=== PATIENT | male | born 1945 | race Caucasian/White ===

== ENCOUNTER 2017-02-13 12:06 | Inpatient (IN) | payer MEDICARE ==
[2017-02-13 13:31] LABS: ABSOLUTE NEUTROPHIL COUNT 8.3 K/mm3 (1.8-7.7); BASO # 0.1 K/mm3 (0.0-0.2); BASO % 0.7 % (0.2-1.0); EOS # 0.2 (0.0-0.5); EOS % 1.8 % (0.9-2.9); HEMATOCRIT 39.6 % (32.0-52.0); HEMOGLOBIN 13.2 gm/l (14.0-18.0); IMM NEUT # 0.1 K/mm3 (0-0.2); IMM NEUT% 0.4 % (0-1); LYMPH # 1.4 (1.0-4.8); LYMPH % 12.6 % (15-45); MEAN CELL VOLUME 97.1 fl (80.0-94.0); MEAN CORPUSCULAR HEMOGLOBIN 32.4 pg (27.0-31.0); MEAN CORPUSCULAR HGB CONC 33.3 g/dl (33.0-37.0); MEAN PLATELET VOLUME 9.9 fl (7.4-10.4); MONO # 1.4 (0.0-0.8); NEUT % 72.5 % (43-75); PLATELET COUNT 233 K/mm3 (130-400); RED CELL DISTRIBUTION WIDTH 11.9 % (11.5-14.5)
[2017-02-13 13:42] LABS: ALB/GLOB RATIO 1.4 (>1.0); ALBUMIN 4.4 gm/dL (3.5-5.7); CALCIUM 9.9 mg/dL (8.6-10.3)
--- NOTE | 2017-02-13 13:49 | US ---
RIGHT LOWER EXTREMITY VENOUS ULTRASOUND HISTORY: Right ankle and calf pain. Sonography of the right lower extremity was performed, with a focus on the venous structures. FINDINGS: COMMON FEMORAL VEIN: Patent and compressible. SUPERFICIAL FEMORAL VEIN: Patent and compressible. POPLITEAL VEIN: Patent and compressible. PROXIMAL CALF VEINS: Patent and compressible. RESPIRATORY AUGMENTATION OF FLOW: Present. ABNORMAL FLUID COLLECTIONS: None identified. IMPRESSION: No sonographic evidence of right lower extremity deep venous thrombosis. Results were electronically transmitted to the electronic medical record at 1417 at 1345 hours.
--- NOTE | 2017-02-13 14:12 | RAD ---
RIGHT ANKLE 3 VIEWS HISTORY: Right lateral ankle pain and swelling COMPARISONS: None. TECHNIQUE: Frontal, lateral, and oblique views of the right ankle. ALIGNMENT: Grossly unremarkable. Ankle mortise intact. FRACTURE: No displaced acute fracture. SOFT TISSUES: Moderate diffuse soft tissue swelling. Ankle effusion is present. RADIOOPAQUE FOREIGN BODY: None. IMPRESSION: No gross malalignment or displaced acute fracture noted. Soft tissue swelling with joint effusion; the current study does not exclude inflammatory arthropathy.
[2017-02-13 15:49] LABS: TOTAL PROTEIN,BODY FLUID 5.4 g/dl
[2017-02-13 17:48] LABS: SYNOVIAL FLUID SOURCE ANKLE
[2017-02-13 17:49] LABS: SYNOVIAL FLUID APPEARANCE TURBID; SYNOVIAL FLUID COLOR RED
[2017-02-13 17:50] LABS: SYNOVIAL FLUID NEUTROPHILS 92 % (0-20)
[2017-02-13] MEDS: KETOROLAC TROMETHAMINE 15 MG/ML VIAL IV ONE ×2 (19:13→19:50)
[2017-02-13] MEDS ORDERED: IV START KIT ONE (19:16)
[2017-02-13] MEDS ORDERED: SODIUM CHLORIDE 0.9% FLUSH 10 ML ONE (19:16)
[2017-02-13] MEDS ORDERED: BLISTEX LIPSTICK 1 EACH TP PRN (19:39)
[2017-02-13] MEDS ORDERED: ACETAMINOPHEN 325 MG TABLET PO PRN (19:39)
[2017-02-13] MEDS ORDERED: SODIUM CHLORIDE 0.9% 100 ML IV PRN (19:39)
[2017-02-13] MEDS ORDERED: MENTHOL/CETYLPYRD 1 EACH LOZENGE PO PRN (19:39)
[2017-02-13] MEDS ORDERED: BISACODYL 10 MG SUP PR PRN (19:39)
[2017-02-13] MEDS ORDERED: MAGNESIUM HYDROXIDE 30 ML UDCUP PO PRN (19:39)
[2017-02-13] MEDS ORDERED: DIPHENHYDRAMINE HCL 25 MG CAPSULE PO PRN (19:39)
[2017-02-13] MEDS ORDERED: BISACODYL 5 MG TABLET.EC PO PRN (19:39)
[2017-02-13] MEDS ORDERED: ALBUTEROL NEB 2.5 MG/3 ML VIAL.NEB NEB PRN (19:42)
[2017-02-13] MEDS ORDERED: INSULIN ASPART (DOSE) 100 UNITS/1 ML SUB-Q PRN (19:44)
[2017-02-13] MEDS ORDERED: ALBUTEROL SULFATE 200 PUFFS/INH INHALER IH PRN (19:46)
[2017-02-13 20:25] VITALS: BMI 30.4
--- NOTE | 2017-02-13 20:33 | HP ---
BLANKA QUINTERO : 1945 [id number] DATE OF ADMISSION: February 13, 2017 PRIMARY CARE PROVIDER: Macario Juarez M.D. CHIEF COMPLAINT: Right ankle pain. HISTORY OF PRESENT ILLNESS: Patient is a 71-year-old gentleman with a history of diabetes and asthma who presents with complaint of right ankle pain for approximately one week. He states that about five days ago, he developed some right ankle pain at 2:00 in the morning. Enough such that he was unable to ambulate on his ankle. He used some crutches to get around. It improved the next day but then worsened the day following and has continued to worsen since. He has had some redness and swelling around the ankle as well, but it has been very generalized on and off. He states that the pain is so severe that it is very hard for him to have anything touching his ankle at all. Ice has been minimally helpful and [id number] medications have not helped at all. 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 However, he does not recall any injuries. Patient came to the emergency room because his pain was severe and was unable to get in to his primary care provider on Wednesday because of a power loss that they had and the clinic was closed. Patient did have two taps of the ankle in the emergency department and this returned a white cell count of 97,366 suggesting septic ankle. He has been seen by orthopedics, and they suggested surgery tomorrow. He is admitted for management until then. PAST MEDICAL HISTORY: Positive for: 1. Asthma which is moderately well controlled. 2. Positive for hypertension. 3. Positive for diabetes type 2 which he states is in the beginning stages. PAST SURGICAL HISTORY: Positive for: 1. Right shoulder rotator cuff last year which was done by Dr. Lee. 2. He has had a ventral hernia repair in the past. 3. He has had sinus surgery in the past. 4. He had bilateral knee arthroscopies both at different times in past years. 5. He had a left parotid removal about 25 years ago which was noncancerous. 6. He also had a thyroid biopsy this year that was negative. ALLERGIES: NO KNOWN DRUG ALLERGIES. He does state that he is allergic to SYMBICORT as well as PENICILLIN. Says it causes him thrush. FAMILY HISTORY: Positive for a dad with severe gout. His mother apparently had ovarian cancer and a sister also had ovarian cancer which spread to the liver. SOCIAL HISTORY: Patient denies any smoking. He quit when he was in college. He denies any drug use. He does drink about one beer per day. MEDICATIONS: Patient is currently takin. Metformin 500 mg orally twice daily. 2. Albuterol MDI two puffs every four hours as needed. He uses this about four to six times per day currently. 3. Losartan 50 mg orally daily. 4. He also takes a daily multivitamin. REVIEW OF SYSTEMS: A full 14 point review of systems is performed and is positive for right ankle pain and swelling with erythema around the ankle. He has had some calf, thigh and buttock pain as well on the right. All other review of systems is negative. PHYSICAL EXAM: VITAL SIGNS: Patient's blood pressure is 148/77, his pulse is 87, his respiratory rate is 14. He is satting 98% on room air. His temperature is 97.5. GENERAL: Patient is lying in bed in no acute distress. EYES: Extraocular muscles are intact. Pupils equal, round and reactive to light. HEENT: Normocephalic, atraumatic. Mucous membranes moist. Oropharynx is clear. HEART: Regular rate and rhythm, no murmur, no rubs, positive S1 and S2. SKIN: Warm, dry and intact. He does have erythema on the right lower extremity around the ankle which is patchy and not with clear borders. LUNGS: Clear to auscultation bilaterally. No wheezes, rales or rhonchi. ABDOMEN: Soft, nontender, nondistended, positive bowel sounds. No hepatosplenomegaly. EXTREMITIES: No cyanosis or clubbing is seen. He has a little bit of nonpitting edema on the right lower extremity around the ankle in the area of the erythema. He is tender in the right ankle as well. NEUROLOGIC: Patient is awake, alert and oriented. He is moving all of his extremities. Cranial nerves appear to be intact. PSYCHOLOGIC: Patient's affect is full and appropriate. STUDIES AND LABORATORIES: An ankle x-ray performed in the emergency department shows no misalignment or displacement, no fracture noted. There is soft joint swelling as well as joint effusion seen on the x-ray. He had a Duplex scan of the lower extremities artery performed in the emergency department today which showed no evidence of deep venous thrombosis. Labs show a white count of 11.4, hemoglobin 13.2, and hematocrit 39.6, and platelet count is 223. He does not have a left shift. Sodium is 133, potassium is 4.4, chloride is 98, CO2 is 27, BUN is 23, creatinine is 1.3, glucose is 014, calcium is 9.9, bilirubin is 1.3, AST is 24, ALT is 36, alkaline phosphatase 57. CRP is 10. His fluid analysis is currently pending crystals. He had 100 glucose, 5.4 protein and 933 LDH in the fluid, WBC was 97,366 with RBC of 46 and neutrophils of 92. ASSESSMENT AND PLAN: 1. Septic ankle. Patient's tap did have significantly elevated WBC count in the right ankle, as such he likely has a septic ankle. Dr. Whitlock, the orthopedic machine feeder floorperson apparently today, has seen the patient today and did perform that tap. He wishes to keep the patient off of antibiotics so that he can take the patient to the operating room tomorrow morning as the patient is not appearing septic and is afebrile. The risk is low for holding off on antibiotics management until such times as he goes to the operating room for the cleanout as well as a clear culture to get a good bacteria specimen. As such, tonight we will manage the patient with pain control and IV fluids. He will be kept nothing by mouth after midnight for anticipated surgery tomorrow morning. 2. Diabetes type 2. Patient has diabetes type 2 which is apparently well controlled on metformin only. I will be holding his metformin due to the fact that he will be having surgery. I am going to get his capillary blood sugars with low sliding scale insulin coverage and a diabetic diet. 3. Hypertension. Patient has a history of hypertension which appears to be well controlled. We will continue his home Losartan and monitor with adjustment as necessary. 4. Asthma. Patient has a history of asthma which he states is reasonably well controlled. He is taking his albuterol several times a day, however, as he is not able to tolerate any of the longer acting medications according to the patient. I will be giving him nebulizers if necessary and metered dose inhaler for mild symptoms. We can adjust if necessary and a steroid if required. 5. Deep venous thrombosis prophylaxis. Patient will be given mechanical means of deep venous thrombosis prophylaxis for now until after surgery in which case Lovenox can be started. 6. Code status: Patient is FULL CODE. Cc: Macario Juarez M.D.
[2017-02-13] MEDS ORDERED: PUMP TUBING ONE (20:51)
[2017-02-13] MEDS: DOCUSATE SODIUM 100 MG CAPSULE PO SCH (21:01)
[2017-02-13] MEDS: FAMOTIDINE 20 MG TABLET PO SCH (21:01)
[2017-02-13] MEDS: SODIUM CHLORIDE 0.9% 1,000 ML IV SCH (21:01)
--- NOTE | 2017-02-13 22:19 | PDOC36 ---
Provider Note Subject: Dx: R ankle septic arthritis I evaluated Mr. Coe in the ED earlier this evening. Please refer to my dictation from that encounter. I aspirated the patients right ankle and sent the specimen for analysis. Synovial WBC resulted with 95,000+ WBCs and over 90% PMNs. Cultures are still pending. The preliminary data is highly predictive of septic arthritis. As such, we will plan to proceed with right ankle I&D. I have discussed this with Mr. Coe. We will proceed tomorrow morning. T&S tonight. Will hold antibiotics tonight in an effort to obtain surgical biopsies/culture without antibiotic interference. This will allow for improved likelihood of identifying a species and sensitivities. The patient is not systemically ill or septic at this time. Should he become increasingly ill overnight we should start empiric antibiotics. Will obtain surgical consent in A.M. prior to surgery.
[2017-02-13 23:07] LABS: CRYSTAL SOURCE Synovial (())
[2017-02-13] MEDS: HYDROCODONE/ACETAMINOPHEN 5/325MG TABLET PO PRN (23:34)
[2017-02-14] MEDS ORDERED: KETOROLAC TROMETHAMINE 15 MG/ML VIAL IV PRN (02:00)
[2017-02-14] MEDS: SODIUM CHLORIDE 0.9% 1,000 ML IV SCH ×2 (05:09→12:20)
--- NOTE | 2017-02-14 07:11 | PDOC43 ---
- Subjective Chief Complaint: R ankle pain pt feeling much better. toradol holed his pain and swelling a good deal. he was able to sleep well. plan to OR today Subjective: Reports Pain Tolerable, Reports Tolerating Diet Well, Reports Urinating Without Difficulty, Denies Bowel Movement, Denies Shortness of Breath , Denies Cough, Denies Chest Pain, Denies Abdominal Pain, Denies Nausea, Denies Vomiting, Denies Fever, Denies Chills - Objective Vital Signs Temperature 98.1 F 02/14/17 01:08 Pulse Rate 75 02/14/17 01:08 Respiratory Rate 18 02/14/17 01:25 Blood Pressure 114/61 02/14/17 01:08 O2 Saturation by Pulse Oximetry 94 02/14/17 01:08 Oxygen Delivery Method Room Air Oxygen Flow Rate 0 Intake and Output 02/12/17 02/13/17 02/14/17 23:59 23:59 23:59 Intake Total 1406 Output Total 625 Balance 781 General: Alert, Oriented x3, Cooperative, No Acute Distress HEENT: Atraumatic, Mucous membr. moist/pink Lungs: Clear to Auscultation Bilaterally, Normal Air Movement, No Diminished at Bases Cardiovascular: Regular Rate and Rhythm, Normal S1, Normal S2, No Murmur, No Gallops, No Rubs Abdomen: Soft, Normal Bowel Sounds, Non-Distended, No Tenderness Extremities: Edema (improved in R ankle. non pitting), Tenderness (mild in R ankle), No Cyanosis Skin: Warm, Dry, Intact, Erythema (trace in R ankle now) Neurological: Normal Speech Psych/Mental Status: Normal Affect, Normal Mood 02/13/17 02/13/17 23:34 19:59 POC Capillary Glucose 111 H 118 H Current Medications: Current meds reviewed in EMR. - Problems: Assessment/Plan (1) Septic arthritis of right ankle Qualifiers: Septic arthritis organism: due to unspecified organism Qualifier Code: (M00.9) Pyogenic arthritis, unspecified Status: AcuteAssessment/Plan: improved swelling and pain with toradol. >95K white cells in fluid drawn in ER, with urate crystals as well. plan to OR today with Mary mehta to start after OR culture done (2) Diabetes mellitus Qualifiers: Diabetes mellitus type: type 2 Diabetes mellitus complication status: without complication Diabetes mellitus jail insulin use: without jail use Qualifier Code: (E11.9) Type 2 diabetes mellitus without complications Status: ChronicAssessment/Plan: sugars stable, on DM diet. holding metformin for OR (3) Asthma Qualifiers: Asthma severity: moderate persistent Asthma complication type: uncomplicated Qualifier Code: (J45.40) Moderate persistent asthma, uncomplicated Status: ChronicAssessment/Plan: nebs on as needed. Pt cannot use long acting inhalers due to recurrent thrush. is thus using albuterol daily, but controlled VTE Prophylaxis: mech means start lovenox after OR? Disposition: to OR today, then pending outcome of cultures
[2017-02-14 07:22] LABS: ABSOLUTE NEUTROPHIL COUNT 3.8 K/mm3 (1.8-7.7); BASO # 0.1 K/mm3 (0.0-0.2); BASO % 0.7 % (0.2-1.0); EOS # 0.3 (0.0-0.5); EOS % 4.5 % (0.9-2.9); HEMATOCRIT 34.5 % (32.0-52.0); HEMOGLOBIN 11.6 gm/l (14.0-18.0); IMM NEUT% 0.6 % (0-1); LYMPH # 1.6 (1.0-4.8); MEAN CELL VOLUME 96.4 fl (80.0-94.0); MEAN CORPUSCULAR HEMOGLOBIN 32.4 pg (27.0-31.0); MEAN CORPUSCULAR HGB CONC 33.6 g/dl (33.0-37.0); MEAN PLATELET VOLUME 10.7 fl (7.4-10.4); MONO # 1.1 (0.0-0.8); MONO % 16.1 % (4-12); NEUT % 55.1 % (43-75); PLATELET COUNT 191 K/mm3 (130-400); RED CELL DISTRIBUTION WIDTH 11.9 % (11.5-14.5)
[2017-02-14 07:30] LABS: CALCIUM 8.8 mg/dL (8.6-10.3)
[2017-02-14] MEDS ORDERED: FENTANYL 250 MCG/5 ML AMP ONE (07:55)
[2017-02-14] MEDS ORDERED: MIDAZOLAM HCL 1 MG/ML 2ML VIAL ONE (07:55)
[2017-02-14] MEDS ORDERED: LACTATED RINGERS 1,000 ML ONE ×2 (08:02→09:43)
[2017-02-14 08:13] LABS: PLATELET ESTIMATE RARE PLT CLUMPS (NORMAL)
[2017-02-14] MEDS ORDERED: ONDANSETRON 4 MG/2ML 2 ML VIAL ONE (08:37)
[2017-02-14] MEDS ORDERED: PROPOFOL 20 ML IV ONE (08:37)
[2017-02-14] MEDS ORDERED: LIDOCAINE 2% (PRES FREE) 5 ML VIAL ONE (08:37)
[2017-02-14] MEDS ORDERED: KETAMINE HCL UD SYRINGE 100 MG/2 ML IV ONE (08:39)
[2017-02-14] MEDS ORDERED: CEFAZOLIN SODIUM 1,000 MG VIAL ONE (08:44)
[2017-02-14] MEDS ORDERED: ATROPINE SULFATE 0.4 MG/1 ML VIAL IV PRN (08:47)
[2017-02-14] MEDS ORDERED: MEPERIDINE 25 MG/ML SYRINGE IV PRN (08:47)
[2017-02-14] MEDS ORDERED: FENTANYL 100 MCG/2 ML VIAL IV PRN (08:47)
[2017-02-14] MEDS ORDERED: NALOXONE HCL 0.4 MG/ML VIAL IV PRN (08:47)
[2017-02-14] MEDS ORDERED: HYDROMORPHONE HCL 1 MG/ML SYRINGE IV PRN (08:47)
[2017-02-14] MEDS ORDERED: ONDANSETRON 4 MG/2ML 2 ML VIAL IV PRN (08:47)
[2017-02-14] MEDS ORDERED: HYDROMORPHONE HCL 2 MG/ML SYRINGE ONE (08:56)
[2017-02-14] MEDS ORDERED: LACTATED RINGERS 1,000 ML IV SCH (09:00)
--- NOTE | 2017-02-14 09:29 | PCMBPN ---
Brief Post Op Note: Date of Procedure: 02/14/17 Start Time: ~845AM Preoperative Diagnosis: 1. R ankle septic arthritis Postoperative Diagnosis: 1. Same Procedure: I&D R ankle Surgeon: Jeff Whitlock MD Anesthesia: GETA Findings: Intra-articular purulence/debris Condition: Good Complications: None IV Fluids: Please see Anesthesia record for details. Urine Output: Not measured Estimated Blood Loss: 10 mLs Tourniquet Time: N/A Specimens: N/A Implants: N/A Drains: [N/A]
[2017-02-14] MEDS: DOCUSATE SODIUM 100 MG CAPSULE PO SCH ×2 (10:23→20:34)
[2017-02-14] MEDS: FAMOTIDINE 20 MG TABLET PO SCH ×2 (10:23→20:34)
[2017-02-14] MEDS: LOSARTAN POTASSIUM 50 MG TABLET PO SCH (10:24)
--- NOTE | 2017-02-14 10:52 | CONS ---
BLANKA QUINTERO [id number] DATE OF : 1945 DATE OF SERVICE: 02/13/2019 CHIEF COMPLAINT: Right ankle pain. HISTORY OF PRESENT ILLNESS: This is a 71-year-old gentleman with history of type 2 diabetes who presented to the emergency department today at about noon with complaint of right foot and ankle pain of approximately 5 days duration. He suggested this started on Wednesday with an aching pain that was progressive. He is now unable to bear weight. He has been using crutches the last few days. Prior to onset, he reports a slight increase in activity including a round of golf as well as trimming some hedges in his yard. He denies any trauma to the ankle. He denies any animal bites. He is unware of any bug bites. He is concerned, however, of potential tick bite given that he was out working in the yard trimming hedges. However, I do not see any areas of induration, or concern for bug bite on examination. Please see below for details. The patient denies any constitutional symptoms. He has not had any fevers. He is not feeling chilled. He has not had any night sweats. He simply reports progressive right ankle pain. He has difficulty with range of motion as well. He suggests that his ankle typically has good supple motion, and now this is blunted. CURRENT MEDICATIONS: 1. Metformin. Unknown dose. 2. Albuterol 2 puffs as needed for shortness of breath. 3. Losartan with an unknown dose as well. ALLERGIES: KNOWN ALLERGIES TO: 1. ERYTHROMYCIN. 2. SYMBICORT. PAST MEDICAL HISTORY: Significant for: 1. Type 2 diabetes. 2. Hypertension. 3. Pulmonary disease including asthma. PAST SURGICAL HISTORY: Includes: 1. Hernia repair. 2. Right shoulder rotator cuff tendon repair. This was done with Dr. Gonzalez. 3. Bilateral knee arthroscopies unknown as to when this was performed, remote history. SOCIAL HISTORY: Mr. Quintero is a [place]. He lives there in town. He is an active golfer. He drinks socially. He denies any drug use. He does not use tobacco products. REVIEW OF SYSTEMS: A 12-point review of systems was obtained and negative except as described in the history of present illness. PHYSICAL EXAMINATION: GENERAL: The patient appears his stated age. He is well-nourished. He is in no apparent distress. He has unlabored breathing. MUSCULOSKELETAL EXAMINATION: His right ankle is diffuse swollen to the level of essentially mid leg. He has a sausage appearance to the digits on that lower extremity. He has no tenderness to range of motion at the metatarsophalangeal joints of any digits. There is a bandage in place where he previously underwent an ultrasound aspirate of the fluid collection by emergency department physician, Dr. Grant. This was removed. There is an area of erythema about the dorsolateral aspect of the ankle tracking somewhat proximally of some 4 cm. It is difficult to assess the skin tone in the remainder of the foot as it has been prepped with iodine paint. However, there does appear to have an erythematous hue to the dorsum of the foot. There is a fusion and a fullness to both the medial aspect of the ankle wrapping posteriorly near the retrocalcaneal area. He has diffuse tenderness to palpation about the tibiotalar joint. Range of motion is blunting in both dorsiflexion and plantar flexion. He demonstrates that he is unable to weight bear without significant pain. He currently requires the use of a front wheeled walker. His sensation was intact to light touch in all nerve distribution including superficial, deep perineals, and the tibial node distributions, the medial and lateral plantar nerves are intact as well. He does have faintly palpable dorsalis pedis pulses. The may be faint as a result of this significant edema. His muscle strength is weak, but is likely limited due to pain. I would rate his pain as a 4/5. DIAGNOSTIC IMAGING: Three views of the right ankle were obtained. There is certainly no evidence of fracture, or dislocation. There is no evidence of bony erosions. No signs of osteomyelitis. There is an effusion present encompassing essentially tibiotalar joint and mid foot. There is diffuse swelling of the soft tissues from the tibiotalar joint distally. LABORATORY DATA: Patient's serum white count is elevated 11.4 with an elevated absolute neutrophil count of 8.3. Inflammatory markers are obtained. A CRP was measured at 10 mg/dL, and the sedimentation rate was elevated at 20 mm/hr. A synovial aspirate was obtained by Dr. Grant prior to my consultation. He was able to aspirate a few mL of straw colored, but turbid fluid high in viscosity. This was sent for cell count and differential, crystal examination and culture, as well as gram stain. Gram stain showed no organisms, but did demonstrate some white cells. Unfortunately, the cell count with differential was unable to be analyzed as the lab reported the sample had "clotted". A new sample was drawn. I preformed the aspirate myself. This was done without the use of ultrasound. This was obtained intraarticular aspirate of the tibiotalar joint, and was able to produce approximately 7 mL of blood tinged synovial fluid with a turbid appearance. We will send this for cell count and differential. IMPRESSION AND PLAN: This is a 71-year-old male with history of type 2 diabetes and 5 days of progressive ankle pain concerning for septic arthritis. Differential diagnosis, however, does also include gout and cellulitis. Given the appearance of the fluid aspirated from the ankle joint, I am concerned that this may represent a septic arthritis. However, without further laboratory data, it is difficult to make that determination at this time. As such, we sent off the repeat aspirate for cell count and differential. Should this cell count come back with counts greater than 35,000 white cells, and left shift with high percentage of neutrophils in the setting of an increased inflammatory markers as well as inability to weight bear, I would consider this joint infected and proceed to the operating room for further both biopsy, drainage, and irrigation and debridement of the right ankle joint. If the synovial count returns less concerning for infection meaning cell count less than 35,000 and neutrophil count less than 65%, I would suggest that this may be more of a gouty flare in the setting of an increased activity. The patient himself does not have a history of gout. However, he does report a family history thus rending it less likely. However, again as I suggested, if the white count is not concerning for infection, we would treat the patient with high doses of nonsteroidal antiinflammatory and antiinflammatory medications and to attempt to see if his symptoms improve. We may also consider at that point, a trial of empiric of IV antibiotics for the treatment of potential cellulitis. Given his inability to weight bear and high likelihood of infection whether it be cellulitis, or septic arthritis at this point, I would recommend the patient be admitted into an observation status while the remainder of the laboratory data is obtained, or results. In the interim, we will treat the patient's symptoms with high doses of antiinflammatories. I would like to hold off on any antibiotic administration at this point, until we do have culture results. I would like to involve the medicine doctors at this point to help us with this patient given his medical comorbidities as well as likely ongoing his infection whether cellulitis, or septic arthritis. MENDOZA/slim
--- NOTE | 2017-02-14 11:20 | OP ---
STEW QUINTERO [id number] DATE OF : 1945 DATE OF SERVICE: 02/14/2019 PREOPERATIVE DIAGNOSIS: Right ankle septic arthritis. POSTOPERATIVE DIAGNOSIS: Right ankle septic arthritis. PROCEDURE: Incision and drainage right ankle. SURGEON: Jeff Whitlock M.D. ANESTHESIA: General. Please see anesthesia record for complete details of that portion of the procedure. IV FLUIDS: Please see anesthesia record for complete details of that portion of [id number]. ESTIMATED BLOOD LOSS: 10 mL TOURNIQUET TIME: Not applicable. SPECIMENS: Two separate fluid cultures were sent to microbiology for speciation and sensitivities. INDICATIONS: Stew Quintero is a 71-year-old male history of type 2 diabetes who presented to the [facility] Emergency Department with complaints of 5 days progressive right ankle pain. He was unable to weight bear. He denied any fever, or chills. He has never had any history of similar symptoms. He reported that the ankle erythematous, swollen, and he had marked difficulty with ambulation, and weight bearing as well as range of motion of the ankle. Laboratory data was obtained. He had an elevated white blood cell count of 11.4. His inflammatory markers of ESR and CRP were also elevated to 22 and 10 respectively. An intraarticular, or synovial aspirate was obtained in the emergency department. This demonstrated a synovial white count of 97,500. There were urate crystals present. There were 92% neutrophils. Cultures are currently pending. Given the patient's presentation and extremely elevated synovial white count, elevated inflammatory markers, and leukocytosis this was felt to likely represent infection in the presence of a gout flair. As such, he was diagnosed with a septic arthritis in the setting of gout, and treatment options were discussed with the patient including IV antibiotics, and irrigation, and debridement of the ankle joint in the operating room. A formal PAR-Q session was held with the patient discussing risks and benefits of the surgery, as well as other treatment options which would essentially IV antibiotics only. He understood the necessity of surgical debridement, and irrigation and elected to proceed. Prior to surgery, the and was met in the preoperative holding area. Again, the risks and benefits were reviewed with the patient. A PAR-Q session was held with he and his family. The operative site was marked. A surgical consent was signed. The patient was transferred to the operating room. PROCEDURE DESCRIPTION: Upon arrival in the operating room, the patient was positioned on the operating room table in the supine position. General anesthesia was induced. Please see anesthesia record for complete details of their portion of the procedure. Once the patient was appropriately anesthetized, he was repositioned on the operating room table. A small bump was placed under the right lower extremity. The operative extremity was prepped and draped in the standard sterile fashion. Prior to the start of the case a formal timeout was held reconfirming the patient's identity, the operative site, and the surgery to be performed. There were no concerns, questions, or issues from operating room staff, anesthesia staff, and/or surgical team thus was deemed appropriate to proceed. Two small subcentimeter incisions made. The first over the anteromedial aspect of the ankle in a spot repressing that of the anteromedial portion of the ankle that one would use for arthroscopy. The skin was sharply dissected. A hemostat was then used to spread the soft tissues down to the level of the joint capsule. A 15 blade was then used to incise the joint capsule sharply. There was expression of a mild amount of purulent material at this point. This was both swabbed as well as cultured aspirated using an 18-gauge needle. The aspirate and swab were both sent for culture. This was repeated on the anterolateral portion of the ankle or a spot pertaining to that location. The skin was sharply dissected. A hemostat was used to spread the soft tissues down to the level of the ankle joint capsule. The capsule was incised sharply with a 15 blade thus allowing for 2 separate but contiguous portals one for inflow and outflow of irrigation fluid. The ankle was slightly distracted and three liters of sterile saline solution and copious amounts of irrigation were run through the ankle joint. The ankle was put through range of motion while this was occurring in an effort to appropriately lavage the entire ankle joint. Once the flow of fluid was clear and this was demonstrated clearance of the purulent material. There was approximately 3 L of fluid, then we turned our attention to closure. We used a 3-0 nylon suture for closure of the soft tissue and skin over the portal sites. At the end of the case, the wounds were dressed with a Xeroform, and multiple 4 x 4 gauze pad was wrapped in sterile Webril, and the patient's operative extremity was placed in a posterior foot splint for soft tissue rest. This marked the end of the case. At the end of the case, all counts were corrected and there were no issues, or concerns from the operating room staff, anesthesia staff, or surgical team, and thus the patient's anesthesia was reversed. He was transferred to the postanesthesia care unit for further observation, and monitoring. Once stable in the postanesthesia care unit, he will be transferred back to the [facility] and will undergo antibiotic therapy. POSTOPERATIVE PLAN: The patient will be made nonweightbearing for the initial 24 hours on the right lower extremity in an effort to provide soft tissue rest. The patient is currently in a posterior foot splint. This will be removed at 24 hours postoperative. The patient will be allowed to weight bear at that time with use of assistance. We will have the physical therapist work with him on gait training and weight bearing. We will continue IV antibiotic therapy empirically with use of Ancef currently. However, this will vary depending on culture results. We should hopefully have results from the aspirate in the emergency department sometime today. Until then, we will proceed with empiric antibiotic treatment using Ancef. Once speciation and sensitivities are available, we will make the appropriate changes to the antibiotic regimen. We will continue to maintain appropriate levels of analgesia using a combination of both non-narcotic and narcotic pain medications. I anticipate routine postoperative course, and the patient will likely be inpatient for 1 to 2 days. MENDOZA/slim
--- NOTE | 2017-02-14 12:25 | PDOC36 ---
Provider Note Subject: Post-operatrive Note -- Orthopedic Surgery Dx: R ankle septic arthritis POD#0 s/p I&D R ankle. - Patient doing well post-op - Pain is well controlled with current pain regimen. VSS; Afebrile. PE- Splint in place on RLE; No drainage. <3s cap refill Moves toes in ext/flex SILT DP/SP/Tib nerve distributions Labs - GS from surgical specimens negative for organisms. A/P: 71yo M s/p I&D R ankle for presumed septic arthritis. Doing well post-op. - Initiate PT starting tmrw AM; NWB RLE until tomorrow morning. WBAT thereafter - Maintain splint in place for soft tissue rest; OK to remove POD#1 and progress WB status. - Continue Abx; Empiric Ancef at this point. - Maintain adequate analegesia; NSAIDs ok. - VTE Ppx: SCDs while in bed; Encourage ambulation. - Dispo: Per Hospitalist; Anticiapte minimum 48hrs inpatient stay for continued course of Abx.
[2017-02-14] MEDS: CEFTRIAXONE 1 GRAM DUPLEX 1 G in Premix (D5W) 50 ml 1 EACH IV SCH (14:57)
[2017-02-14] MEDS ORDERED: VANCOMYCIN HCL 1.5 G in SODIUM CHLORIDE 0.9% 500 ML IV ONE (15:00)
[2017-02-14] MEDS ORDERED: CEFAZOLIN SODIUM 2 GRAM PREMIX 2 G in Premix (D5W) 100 ml 1 EACH IV SCH (17:00)
[2017-02-14] MEDS: HYDROCODONE/ACETAMINOPHEN 5/325MG TABLET PO PRN ×2 (19:15→23:15)
[2017-02-15 05:58] LABS: ABSOLUTE NEUTROPHIL COUNT 3.9 K/mm3 (1.8-7.7); BASO % 0.5 % (0.2-1.0); EOS # 0.3 (0.0-0.5); EOS % 5.1 % (0.9-2.9); HEMATOCRIT 33.1 % (32.0-52.0); HEMOGLOBIN 10.9 gm/l (14.0-18.0); IMM NEUT% 0.3 % (0-1); LYMPH # 1.5 (1.0-4.8); LYMPH % 22.5 % (15-45); MEAN CELL VOLUME 99.4 fl (80.0-94.0); MEAN CORPUSCULAR HEMOGLOBIN 32.7 pg (27.0-31.0); MEAN CORPUSCULAR HGB CONC 32.9 g/dl (33.0-37.0); MONO # 0.8 (0.0-0.8); MONO % 12.4 % (4-12); NEUT % 59.2 % (43-75); PLATELET COUNT 196 K/mm3 (130-400); RED CELL DISTRIBUTION WIDTH 11.9 % (11.5-14.5)
[2017-02-15 06:09] LABS: CALCIUM 8.7 mg/dL (8.6-10.3)
[2017-02-15] MEDS: DOCUSATE SODIUM 100 MG CAPSULE PO SCH ×3 (08:29→21:03)
[2017-02-15] MEDS: LOSARTAN POTASSIUM 50 MG TABLET PO SCH (08:29)
[2017-02-15] MEDS: FAMOTIDINE 20 MG TABLET PO SCH ×2 (08:29→21:01)
[2017-02-15] MEDS: HYDROCODONE/ACETAMINOPHEN 5/325MG TABLET PO PRN (12:20)
--- NOTE | 2017-02-15 13:06 | PDOC43 ---
- Subjective Chief Complaint: R ankle pain Still c/o significant right ankle pain. Had been taking a high dose of OTC magnesium with collagen for about a month prior to the ankle attack. - Objective Vital Signs Temperature 98.5 F 02/15/17 12:02 Pulse Rate 85 02/15/17 12:02 Respiratory Rate 18 02/15/17 12:02 Blood Pressure 159/91 02/15/17 12:02 O2 Saturation by Pulse Oximetry 94 02/15/17 12:02 Oxygen Delivery Method Room Air Oxygen Flow Rate 0 Intake and Output 02/14/17 02/15/17 02/16/17 06:59 06:59 06:59 Intake Total 1406 4685 300 Output Total 625 2980 Balance 781 1705 300 General: Alert, Oriented x3, Cooperative, No Acute Distress HEENT: Mucous membr. moist/pink Lungs: Clear to Auscultation Bilaterally Cardiovascular: Regular Rate and Rhythm Abdomen: Soft, Normal Bowel Sounds, No Tenderness, No Masses Extremities: Other (posterior splint on right leg) Skin: Normal Color Neurological: Normal Speech Psych/Mental Status: Normal Mood Laboratory 02/15/17 05:30 02/15/17 05:30 02/15/17 02/14/17 05:30 20:34 RBC 3.33 L MCV 99.4 H MCH 32.7 H MCHC 32.9 L Estimated GFR 50 L POC Capillary Glucose 110 H Current Medications: Current meds reviewed in EMR. - Problems: Assessment/Plan (1) Septic arthritis of right ankle Qualifiers: Septic arthritis organism: due to unspecified organism Qualifier Code: (M00.9) Pyogenic arthritis, unspecified Status: AcuteAssessment/Plan: Possible bacterial infection present on admit, s/p I&D 02/14 and started on ceftriaxone and vancomycin. All Stains and Cultures negative so far. May be a Gout flair without infection. improved swelling and pain with toradol. >95K white cells in fluid drawn in ER, with urate crystals as well. (2) Asthma Qualifiers: Asthma severity: moderate persistent Asthma complication type: uncomplicated Qualifier Code: (J45.40) Moderate persistent asthma, uncomplicated Status: ChronicAssessment/Plan: nebs on as needed. Pt cannot use long acting inhalers due to recurrent thrush. 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 holding metformin for OR (4) Gout Qualifiers: Gout site: ankle Gout etiology: unspecified cause Laterality: right Chronicity: acute Qualifier Code: (M10.9) Gout, unspecified Status: AcuteAssessment/Plan: Start colchicine, ibuprofen and pantoprazole (5) HTN (hypertension), benign Status: ChronicAssessment/Plan: moderate control on losartan. VTE Prophylaxis: enoxaparin Disposition: possible d/c tomorrow if cultures are negative.
[2017-02-15] MEDS: PANTOPRAZOLE 40 MG TABLET DR PO SCH (13:17)
[2017-02-15] MEDS: COLCHICINE 0.6 MG TABLET PO SCH ×2 (13:17→21:01)
[2017-02-15] MEDS ORDERED: PUMP TUBING ONE (14:28)
[2017-02-15] MEDS: CEFTRIAXONE 1 GRAM DUPLEX 1 G in Premix (D5W) 50 ml 1 EACH IV SCH (14:29)
[2017-02-15] MEDS ORDERED: VANCOMYCIN HCL 1.25 G in SODIUM CHLORIDE 0.9% 250 ML IV SCH (15:00)
[2017-02-15] MEDS: IBUPROFEN 600 MG TABLET PO SCH ×2 (15:06→21:00)
[2017-02-16] MEDS: DOCUSATE SODIUM 100 MG CAPSULE PO SCH (09:05)
[2017-02-16] MEDS: IBUPROFEN 600 MG TABLET PO SCH (09:05)
[2017-02-16] MEDS: COLCHICINE 0.6 MG TABLET PO SCH (09:05)
[2017-02-16] MEDS: LOSARTAN POTASSIUM 50 MG TABLET PO SCH (09:06)
[2017-02-16] MEDS: FAMOTIDINE 20 MG TABLET PO SCH (09:06)
[2017-02-16 12:31] VITALS: BP 178/106
[2017-02-16] MEDS: PANTOPRAZOLE 40 MG TABLET DR PO SCH (13:37)
--- NOTE | 2017-02-16 14:02 | DS ---
Stew Coe ADMIT DATE: 02/13/2017 DISCHARGE DATE: 02/16/2017 ADMIT DIAGNOSES: 1. Septic right ankle. 2. Diabetes type 2. 3. Hypertension. 4. Reactive airway disease at baseline. DISCHARGE DIAGNOSES: 1. Right ankle with sinus symptoms consistent with a gout flare and negative cultures at two days, though final cultures will not be available until five days outs. 2. Reactive airway disease at baseline. 3. Diabetes at baseline. 4. Hypertension at baseline. CONSULTATIONS: Orthopedic consult with Dr. Whitlock, please see his notes for details. PROCEDURES: 1. Right ankle incision and drainage with washout on 02/14/2017. 2. Right ankle aspiration on 02/13/2017. All cultures remained negative. ADMIT HISTORY AND PHYSICAL: Please see Dr. Romero's note for details. Briefly, Mr. Coe is a 71-year-old male with a history of diabetes and asthma. He presented with a spontaneous onset of right ankle pain and swelling times about one week. In the emergency room he was worked up. He did have some redness and swelling of the ankle. There was concern about a septic ankle. Dr. Whitlock of orthopedics did a consult in the emergency room and did a joint aspiration. There was a significant number of white cells in the aspirate, but no organisms. He was admitted to the hospitalist service for further treatment and orthopedic involvement. HOSPITAL COARSE: He was admitted. He was not started on antibiotics initially. On the morning of 02/14 he was taken to the operating room for an incision, drainage, and washout with several more cultures taken. At that point, then he was started on antibiotics due to concern about septic joint, however, his ankle aspirate gram stains were all negative for organisms, but it did show a significant number of crystals consistent with gout. He remained stable throughout the remainder of his hospitalization. He was started on Rocephin and vancomycin as well as colchicine and ibuprofen. He had a marked improvement in his symptoms. By the day of discharge he was ambulating well with minimal pain. All cultures remained negative at 48 hours. It was felt unlikely that his initial presentation represented a septic joint and most likely representing a gout flare. We have elected to discharge him home on colchicine and ibuprofen. Due to the still slightly concern about possible septic joint we also are going to send him home on Keflex and Bactrim for plans for close outpatient follow up. Again cultures remained negative at 48 hours, however, there will not be final cultures available until five days out. DISCHARGE MEDICATIONS: 1. Bactrim DS 1 by mouth twice daily x7 days. 2. Keflex 500 mg by mouth four times daily x7 days. 3. Colchicine 0.6 mg by mouth as needed for gout flare. 4. Ibuprofen 600 mg by mouth three times a day. 5. Omeprazole 20 mg by mouth daily. All other medications as prior to admit as follows: 1. Losartan 50 mg by mouth daily. 2. Metformin 500 mg by mouth daily. 3. Albuterol MDI as needed. DISCHARGE FOLLOW UP: Will be with Dr. Ron on 02/23/2017 as scheduled to review patient's cultures and to reevaluate his ankle. Follow up with Dr. Luke Eastman of orthopedics in approximately 10 days for suture removal and a recheck. JOB: [id number] CC: Dr. Ariadne Eastman
--- NOTE | 2017-02-16 15:45 | PDOC43 ---
- Subjective Findings: Patient much improved, some stiffness in the ankle but no real pain. Subjective: Reports Flatus, Reports Pain Tolerable, Denies Chest Pain, Denies Shortness of Breath, Denies Nausea, Denies Vomiting, Denies Fever - Objective Vital Signs Temperature 98.6 F 02/16/17 12:30 Pulse Rate 75 02/16/17 12:30 Respiratory Rate 16 02/16/17 12:30 Blood Pressure 178/106 02/16/17 12:30 O2 Saturation by Pulse Oximetry 96 02/16/17 12:30 Oxygen Delivery Method Room Air Oxygen Flow Rate 0 Laboratory 02/15/17 05:30 02/16/17 06:34 02/16/17 06:34 Estimated GFR 59 L Intake and Output 02/14/17 02/15/17 02/16/17 23:59 23:59 23:59 Intake Total 5291 2580 770 Output Total 2258 4105 1675 Balance 3036 305 -905 General: Afebrile, No Acute Distress HEENT: EOMI Lungs: Normal Air Movement Abdomen: Soft Skin: Normal Color, Warm, Dry, Intact Neurological: Grossly Intact, Alert, Oriented x 4, Normal Speech Psych/Mental Status: Normal Affect, Normal Mood - Right Lower Extremity Incision: Dressing Clean/Dry/Intact, Well Approximated, Brandi Intact, No Drainage, No Erythema, No Rash, No Ecchymosis Motor: Extensor Hallucis Longus: 5/5, Tibialis Anterior: 5/5, Gastrocnemius: 5/5 , Peroneals: 5/5, Quadriceps: 5/5 Gross Sensation to Light Touch: Present: Deep Peroneal Nerve, Superficial Peroneal Nerve, Medial Plantar Nerve, Lateral Plantar Nerve, Sural Nerve, Saphenous Nerve Capillary Refill: < 3 Seconds Motion: 10 DF to 35 PF - Problems (1) Gout Qualifiers: Gout site: ankle Gout etiology: unspecified cause Laterality: right Chronicity: acute Qualifier Code: (M10.9) Gout, unspecified Status: AcuteAssessment/Plan: POD#2 R ankle I&D for infection vs gouty flare 1. Physical Therapy: up with walker, doing much better, WBAT with increasing activity 2. Pain Control: doing well on current meds 3. DVT Prophylaxis: mechanical + ambulation 4. Disposition: home today 5. Medical Issues: cultures pending but no growth to date and no organisms on gram stain; will cover with PO Keflex until cultures final, but most likely a gouty flare without sepsis. Will followup with his PCM for gout medical management, and in my office in 10-14 days for suture removal. PAB
== END 2017-02-16 13:50 | disposition home or self-care (01) | DRG 550 ==
LOC: ED 12:06 → MS 17:35 → OBSVTOIN 17:35
PROVIDERS: ADMIT Family Medicine; ATTEND Family Medicine
PROC: 0Y9K3ZX Drainage of Right Ankle Region, Percutaneous Approach, Diagnostic (ICD-10-PCS; principal; 2017-02-13)
PROC: 0H9MXZZ Drainage of Right Foot Skin, External Approach (ICD-10-PCS; 2017-02-14)
DX: M00.9 Pyogenic arthritis, unspecified (principal); E11.9 Type 2 diabetes mellitus without complications; I10 Essential (primary) hypertension; M10.9 Gout, unspecified; J45.40 Moderate persistent asthma, uncomplicated; Z79.84 Long term (current) use of oral hypoglycemic drugs

== ENCOUNTER 2017-03-04 08:38 | Outpatient (CLI) | payer MEDICARE | END 2017-03-04 08:39 | disposition home or self-care (01) | LOC: NC 08:38 | PROVIDERS: ATTEND Family Medicine | DX: M10.9 Gout, unspecified (principal); Z71.3 Dietary counseling and surveillance; R73.09 Other abnormal glucose; J44.9 Chronic obstructive pulmonary disease, unspecified; I10 Essential (primary) hypertension ==